=== PATIENT | female | born 1940 | race Caucasian/White ===

== ENCOUNTER 2025-01-13 16:16 | Emergency (ER) | payer OTHER, SELFPAY ==
[2025-01-13 16:27] VITALS: BP 160/84; PULSE 69; RESP 18; TEMP 37; O2SAT 97
--- NOTE | 2025-01-13 17:00 | DI.RAD_ITS ---
Exam(s) XR SHOULDER RT COMPLETE 2+V EXAM: XR SHOULDER RT COMPLETE 2+V CLINICAL HISTORY: pain s/p fall, prox humerus fx in September. TECHNIQUE: 2D digital imaging was performed. COMPARISON: No prior exams were available for comparison FINDINGS: Five views There is a subacute appearing fracture of the humeral head-neck. Fracture appears to have involve the greater tuberosity. Mild displacement. No dislocation glenohumeral and AC joints. Small calcific densities noted in the subacromial space on 1 image IMPRESSION: As above. Recommend obtaining prior images for comparison. DATA REPOSITORY: RADIATION DOSE DELIVERED:
--- NOTE | 2025-01-13 17:03 | ED.GENADUL_ITS ---
Discharge Plan Disposition Patient Disposition: Home Condition: Stable Discharge Details Clinical Impression: Sprain of right shoulder Primary Care Provider: Hina,Local ED Provider: Carlos Edwards Discharge Instructions Additional Instructions: Your x-ray did not show any visible acute or new fracture. You can take 1000 mg of acetaminophen every 6 hours as needed, do not exceed 3000 mg in a 24-hour period. You can take 100 mg of ibuprofen every 4 hours as needed. Follow-up with orthopedics and return back Appointment. If you get more ill or have severe worsening pain return to emergency department. Use the sling as needed for comfort HPI General Mode of arrival: ambulatory . Date/Time Provider Initiated Documentation: 01/13/25 16:40 . Limitations to Documentation: no limitations . Information obtained by: patient . History of Present Illness 84 year old F presents to the emergency department with the chief complaint of right shoulder pain s/p fall, described as mild, Quality is described as aching, Patient reports no radiation. Patient started experiencing this hour(s) (1) and it has been constant. Rest improves symptom(s), Movement worsens symptoms . Patient notes no other symptoms.. Patient did receive the following treatments prior to arrival, other (meloxicam) Related Data Allergies Allergy/AdvReac Type Severity Reaction Status Date / Time No Known Allergies Allergy Unverified 01/13/25 16:29 General Stated Complaint: Fall/Non TraumaCriteria TESSA: 3 Review of Systems All systems reviewed & are unremarkable except as noted in HPI and below Constitutional Constitutional: Denies chills, Denies fever(s) and Denies weakness Cardiovascular Cardiovascular: Denies chest pain and Denies dyspnea Respiratory Respiratory: Denies cough and Denies dyspnea Gastrointestinal Gastrointestinal: Denies abdominal pain, Denies nausea and Denies vomiting Musculoskeletal Musculoskeletal: Reports arthralgias Neurologic Neurologic: Denies weakness Exam Const General: no acute distress Orientation: alert HENMT Head: normal to inspection Ears: external ears normal General nose exam: external nose normal Mouth: moist mucous membranes Eyes General: appearance normal, both eyes and all related structures Neck Neck: normal visual inspection Resp Effort & Inspection: normal respiratory effort and able to speak in complete sentences Cardio Rate: regular rate Skin General skin exam: no rashes or lesions noted Neuro General: patient alert and patient oriented x3 Extrem General: full ROM and capillary refill normal Psych Mental Status: mental status grossly normal Course Vital Signs Vital signs: Vital Signs Temperature 37 C 01/13/25 16:27 Pulse 69 01/13/25 16:27 Respiratory Rate 18 01/13/25 16:27 Blood Pressure 160/84 H 01/13/25 16:27 Pulse Oximetry 97 01/13/25 16:27 Temperature 37 C 01/13/25 16:27 Pulse 69 01/13/25 16:27 Respiratory Rate 18 01/13/25 16:27 Blood Pressure 160/84 H 01/13/25 16:27 Pulse Oximetry 97 01/13/25 16:27 Pain Level 8 01/13/25 16:52 Medical Decision Making 84-year-old female who is visiting from [place] comes in with right shoulder pain. She says in September of this year she had a fall where she broke her proximal humerus which has been managed nonoperatively. She says that she was getting out of a car that parked on a hill and when she got out she fell landed on her right shoulder. Did not hit her head or have loss of consciousness. She is alert oriented x 4 on arrival with a GCS of 15. She is denying any headache, neck pain, back pain, chest or abdomen pain. She has no signs of trauma to the head. She localizes the pain to the right anterior shoulder. She says she took meloxicam that was prescribed to her which has brought her pain to a 0 unless she moves her shoulder that she has 1 out of 10 pain. She has full range of motion of the shoulder. She is tender to the right anterior shoulder without visible palpable deformity. Intact distal sensation and pulses. Will obtain x- rays to evaluate for acute fracture. X-ray shows no visible acute fractures, appears to have a subacute fracture consistent with her prior fall. She is pain-free still. Will provide her a sling to use for comfort and she will follow-up with orthopedics when she returns home. Return precautions given There is a subacute appearing fracture of the humeral head-neck. Fracture appears to have involve the greater tuberosity. Mild displacement. No dislocation glenohumeral and AC joints. Small calcific densities noted in the subacromial space on 1 image Differential Diagnosis Differential Diagnosis: Fracture, sprain PFSH All Active Problems (Updated 01/13/25 @ 18:30 by Carlos Edwards MD) Sprain of right shoulder (Acute) Social History Smoking/Tobacco Use Status: Never Smoking risk assessment performed?: Yes Alcohol Intake: current Alcohol Intake frequency: holidays/special occasions only Drug use: Never Substance use type: does not use Do you feel safe at home: Yes Do you feel safe in your relationship?: Yes PAWSS Have you Been Recently Intoxicated or Drunk Within the Last 30 days?: No Have you Ever Experienced Previous Episodes of Alcohol Withdrawal?: No Have you ever Experienced Withdrawal Seizures?: No Have you ever Experienced Delirium Tremens(DT)s?: No Have you ever undergone Alcohol Rehabilitation Treatment (i.e, inpt ot outpatient treatment programs)?: No Have you ever Experienced Blackouts?: No Have you ever Combined Alcohol with other Downers within the last 90 days?: No Have you ever Combined Alcohol with any other Substance of Abuse during the last 90 days?: No Positive Blood Alcohol level on Presentation? [PCS.BAL]: No Evidence of Increased Autonomic Activity (i.e. HR>120, tremor, sweating, agitation, nausea)?: No Result: 0
[2025-01-13 18:38] VITALS: BP 124/72; PULSE 82; RESP 18; TEMP 36.6; O2SAT 98
== END 2025-01-13 18:38 | disposition home or self-care (01) ==
PROVIDERS: Emergency Provider Emergency Medicine
DX: S42.291A Other displaced fracture of upper end of right humerus, initial encounter for closed fracture (principal); V48.4XXA Person boarding or alighting a car injured in noncollision transport accident, initial encounter; Y93.89 Activity, other specified
CPT/HCPCS: 99283; 73030